=== PATIENT | female | born 1955 | race Caucasian/White ===

== ENCOUNTER 2017-12-25 18:57 | Emergency (ER) | payer BC, SELFPAY ==
[2017-12-25 18:59] VITALS: BP 155/102; PULSE 89; RESP 16; TEMP 36.2; O2SAT 98; BMI 21.7
--- NOTE | 2017-12-25 19:21 | EKG12_ITS ---
Test Reason : CP Blood Pressure : / mmHG Vent. Rate : 078 BPM Atrial Rate : 078 BPM P-R Int : 154 ms QRS Dur : 088 ms QT Int : 412 ms P-R-T Axes : 080 054 066 degrees QTc Int : 469 ms Normal sinus rhythm Nonspecific ST and T wave abnormality Abnormal ECG Confirmed by LYDIA ESPITIA, RAY ([id number]), script editor MOE GILMORE ([id number] on 12/26/2017 3:23:34 PM Referred By: KADIE Confirmed By:RAY FREEMAN MD
--- NOTE | 2017-12-25 19:21 | CT_ITS ---
STUDY: CT ABDOMEN AND PELVIS WITH CONTRAST REASON FOR EXAM: Female, 62 years old. Bloating. Blood in stool. Abdominal pain. RADIATION DOSAGE (If Supplied By Facility): CTDIvol = ( 13.80 ) mGy, DLP = ( 631.94 ) mGycm TECHNIQUE: Transaxial images were obtained from the dome of the diaphragm to the symphysis pubis with oral contrast. 100 ml of Isovue 300 contrast was administered. Sagittal and coronal images were reconstructed. Individualized dose optimization techniques were used for this CT. COMPARISON: None. FINDINGS: The visualized lung bases are unremarkable. There is elevation of the right hemidiaphragm. The visualized portions of the heart are within normal limits. The liver is normal in size, contour and enhancement. There is a 6 mm hypodensity in segment 4A of the liver thought to represent small cysts. There is no enhancing mass. Normal gallbladder and extrahepatic biliary system. Normal spleen. Normal pancreas. Normal bilateral adrenal glands. Normal right kidney. Normal left kidney. There is an extrarenal pelvis left kidney without hydronephrosis. Normal visualized bilateral ureters. Normal visualized stomach. Normal small intestine. Normal colon. The appendix is visualized and appears normal. There is diffuse atherosclerotic calcification of the abdominal aorta, without a demonstrated aneurysm. Normal inferior vena cava. Normal retroperitoneum. The urinary bladder is markedly distended. There is no wall thickening or mass. Normal uterus and adnexa. There is no pelvic lymphadenopathy. No free air or free fluid is seen within the peritoneal cavity. Normal abdominal wall. There is dextroscoliosis and degenerative changes of the lumbar spine. There is a right artificial hip. CT/Abdomen/Pelvis WITH Contrast IMPRESSION: 1. Small hepatic cyst. 2. Distended urinary bladder without evidence of mass or obstruction. 3. Degenerative changes and scoliosis of the lumbar spine. 4. Atherosclerotic changes of the abdominal aorta. 5. Right artificial hip. Electronically Signed: Catarino Alvarez DO at 21:30 EST Tel [phone], Service support ,
--- NOTE | 2017-12-25 19:22 | ED.VISSUMM ---
- ER Visit Summary Date of Service: 12/25/17 Chief Complaint: Decreased appetite, weight loss, transient chest pain History of Present Illness: The patient is a 62 F brought in with family evaluation of decreased appetite, weight loss. Been going on past few months. States nauseated. Reports had 2 episodes transient chest pain with pressure 1:11 PM the other at 4 PM. Has been resolved for 2 hours. Reports had a non-STEMI in October managed at [facility]. Elevated troponin, however no heart cath. Reports a image study was performed with minimal calcifications. She was treated medically with aspirin, Plavix, Lopressor. Was told to follow-up with her PCP. With her symptoms at that time, she did have an EGD, reported that this was normal findings. After follow with PCP, was referred to GI, saw Dr. Snyder 3 days ago. Barium swallow, also has an upcoming plan for colonoscopy in the next 2 weeks. Today from wiping noted blood. No hematuria. No pain with urination. Patient was told of her bowel habits change or worsening GI symptoms to go to the ED for evaluation. Physical Examination: General: Alert and oriented ?3, no acute distress HEENT: Normocephalic, atraumatic. Moist mucosa membranes Neck: supple, nontender. Cardiovascular: Regular rate and rhythm, no murmurs Respiratory: Normal breath sounds, symmetric, no distress Abdomen: Soft, nontender, nondistended Extremities: Nontender, no edema, pulses intact ?4 Neuro: no focal neurological deficits. Test Results: EKG: Sinus rate of 78, no ST changes. White count 8.3. Hemoglobin 15. Potassium 3.3. Creatinine 0.84. Lipase normal. LFTs normal. Troponin negative. Contrast abdominal CT noted small liver cyst with distended bladder. No masses. Emergency Department Course and Treatment: Patient nonsurgical abdomen. Patient reported decreased appetite weight loss. Is having outpatient workup. EGD out in [place] during her hospitalization in October reported negative. She has upcoming colonoscopy. There is been no imagings of the abdomen. Discussed further workup and rule out with testing. They agreed. Abdominal labs are stable. Contrast CT shows no masses. There is liver cyst, distended bladder. Patient is urinated prior to coming, she is able to urinate on my reevaluation. Was treated with Zofran and fluids felt much better. With her chest symptoms EKG was normal troponin negative. Patient will continue to follow-up as an outpatient her GI physician. All questions were answered. Signs and symptoms discussed return. Treatment Plan: [] Disposition: Discharge Impression: 1. Chest pain 2. Abdominal pain This note was generated with [employer] dictation software. It may contain incorrect words, spelling, and punctuation that were not noted in review of the chart prior to signing ED Disposition - Plan for ED Patient: Disposition: Home or Assisted Living Chief Complaint: Abd Pain Diagnosis: Chest pain, Abdominal pain Instructions: ED Chest Pain Atypical Unkn Cause, ED Abdominal Pain Unkn Cause Prescriptions: Ondansetron [Zofran Odt] 8 mg PO Q8H PRN PRN #10 tab PRN Reason: Nausea Referrals: Ron Jones MD [Primary Care Provider] - 3-5 Days Additional Instructions: Follow up with GI, Dr. Calix. Liver cyst on CT. No masses.
--- NOTE | 2017-12-25 19:24 | ED.RN ---
NO OLD EKGS IN MUSE
--- NOTE | 2017-12-25 19:25 | ED.DCSUM_ITS ---
- ER Visit Summary Date of Service: 12/25/17 Chief Complaint: Decreased appetite, weight loss, transient chest pain History of Present Illness: The patient is a 62 F brought in with family evaluation of decreased appetite, weight loss. Been going on past few months. States nauseated. Reports had 2 episodes transient chest pain with pressure 1:11 PM the other at 4 PM. Has been resolved for 2 hours. Reports had a non- STEMI in October managed at [facility]. Elevated troponin, however no heart cath. Reports a image study was performed with minimal calcifications. She was treated medically with aspirin, Plavix, Lopressor. Was told to follow- up with her PCP. With her symptoms at that time, she did have an EGD, reported that this was normal findings. After follow with PCP, was referred to GI, saw Dr. Snyder 3 days ago. Barium swallow, also has an upcoming plan for colonoscopy in the next 2 weeks. Today from wiping noted blood. No hematuria. No pain with urination. Patient was told of her bowel habits change or worsening GI symptoms to go to the ED for evaluation. Physical Examination: General: Alert and oriented ?3, no acute distress HEENT: Normocephalic, atraumatic. Moist mucosa membranes Neck: supple, nontender. Cardiovascular: Regular rate and rhythm, no murmurs Respiratory: Normal breath sounds, symmetric, no distress Abdomen: Soft, nontender, nondistended Extremities: Nontender, no edema, pulses intact ?4 Neuro: no focal neurological deficits. Test Results: EKG: Sinus rate of 78, no ST changes. White count 8.3. Hemoglobin 15. Potassium 3.3. Creatinine 0.84. Lipase normal. LFTs normal. Troponin negative. Contrast abdominal CT noted small liver cyst with distended bladder. No masses. Emergency Department Course and Treatment: Patient nonsurgical abdomen. Patient reported decreased appetite weight loss. Is having outpatient workup. EGD out in [place] during her hospitalization in October reported negative. She has upcoming colonoscopy. There is been no imagings of the abdomen. Discussed further workup and rule out with testing. They agreed. Abdominal labs are stable. Contrast CT shows no masses. There is liver cyst, distended bladder. Patient is urinated prior to coming, she is able to urinate on my reevaluation. Was treated with Zofran and fluids felt much better. With her chest symptoms EKG was normal troponin negative. Patient will continue to follow-up as an outpatient her GI physician. All questions were answered. Signs and symptoms discussed return. Treatment Plan: [] Disposition: Discharge Impression: 1. Chest pain 2. Abdominal pain This note was generated with [employer] dictation software. It may contain incorrect words, spelling, and punctuation that were not noted in review of the chart prior to signing ED Disposition - Plan for ED Patient: Disposition: Home or Assisted Living Chief Complaint: Abd Pain Diagnosis: Chest pain, Abdominal pain Instructions: ED Chest Pain Atypical Unkn Cause, ED Abdominal Pain Unkn Cause Prescriptions: Ondansetron [Zofran Odt] 8 mg PO Q8H PRN PRN #10 tab PRN Reason: Nausea Referrals: Ron Jones MD [Primary Care Provider] - 3-5 Days Additional Instructions: Follow up with GI, Dr. Calix. Liver cyst on CT. No masses.
[2017-12-25 19:45] LABS: Absolute Lymphocyte Count 3.15 X10^3/ul (0.83-4.51); Absolute Neutrophil Count 4.3 X10^3/uL (2.0-7.7); Basophil# 0.02 X10^3/uL; Basophil% 0.2 % (0-1); Eosinophil# 0.04 X10^3/uL; Eosinophils% 0.5 % (0-5); Hematocrit 44.4 % (37-47); Lymphocyte # 3.15 X10^3/ul (4.0); Mean Corp Hgb Conc 33.8 g/gl (32-36); Mean Corpuscular Hgb 32.6 pg (27.0-32.0); Mean Corpuscular Volume 96.5 fL (81-99); Mean Platelet Vol. 10.7 fl (6.2-12.0); Monocyte# 0.74 X10^3/uL; Monocyte% 8.9 % (0-10); Neutrophil # 4.34 X10^3/uL (2.7-7.7); Neutrophil % 52.3 % (47-70); Platelet Count 258 K/mm3 (150-450); RBC Distribution Width CV 13.4 % (11.6-14.6); RBC Distribution Width SD 47.3 fl (35.1-43.9); White Blood Count 8.3 K/mm3 (4.4-11.0)
[2017-12-25 19:50] LABS: ALB/GLOB Ratio 0.9 RATIO (0.9-2.4); AST(SGOT) 16 U/L (15-37); Alanine Aminotransfer ALT/SGPT 38 U/L (13-56); Albumin, Serum 4.2 g/dL (3.2-5.0); Alkaline Phosphatase 81 U/L (45-117); Anion Gap 10 (5-15); BUN 8 mg/dL (7-18); BUN/Creat Ratio 9.6 RATIO (10-20); Calcium,Total 9.2 mg/dL (8.5-10.1); Chloride 105 mmol/L (98-107); Creatinine, Serum 0.84 mg/dL (0.55-1.02); EST Glomerular Filtration Rate 74 mL/min (>60); Est Glom Filt Rate - Afr Amer 89 mL/min (>60); Estimated Creatinine Clearance 75.08 ml/min; Globulin 4.6 g/dL (2.2-4.2); Glucose 91 mg/dL (74-106); Lipase 109 U/L (73-393); Potassium 3.3 mmol/L (3.5-5.1); Protein, Total 8.8 g/dL (6.4-8.2); Sodium Level 142 mmol/L (136-145)
[2017-12-25 20:00] LABS: POSITIVE COUNT NO; POSITIVE DIFFERENTIAL NO; POSITIVE MORPHOLOGY NO
[2017-12-25 20:06] LABS: International Normalized Ratio 1.1; Partial Thromboplast Time 31.2 Seconds (24.1-36.2)
[2017-12-25] MEDS: Ondansetron 4 MG/2 ML Vial IV (20:08)
[2017-12-25] MEDS: 0.9% Normal Saline 1,000 ML 125 ML IV (20:14)
[2017-12-25 22:22] VITALS: BP 101/71; RESP 16; O2SAT 96
== END 2017-12-25 22:25 | disposition home or self-care (01) ==
PROVIDERS: Emergency Provider Emergency Medicine; Family Provider Family Medicine; PCP Family Medicine
DX: R07.89 Other chest pain (principal); R10.9 Unspecified abdominal pain; K76.89 Other specified diseases of liver; N32.89 Other specified disorders of bladder; R63.4 Abnormal weight loss; R11.0 Nausea; I25.10 Atherosclerotic heart disease of native coronary artery without angina pectoris; I25.2 Old myocardial infarction
CPT/HCPCS: 36415; 74177; 80053; 82274; 83690; 84484; 85025; 85610; 85730; 93005; 96361; 96374; 99283; J7030; Q9967; A4216; J2405

== ENCOUNTER 2018-01-02 11:28 | Observation (INO) | payer BC, SELFPAY ==
[2018-01-02] VITALS (9 sets, daily range): BP systolic 115–156; BP diastolic 67–101; PULSE 58–75; RESP 16–19; TEMP 35.6–36.6; O2SAT 95–98; BMI 21.1; BMI 20.8
--- NOTE | 2018-01-02 11:58 | RAD_ITS ---
STUDY: X-RAY CHEST REASON FOR EXAM: Female, 62 years old. Chest pain. Nausea. TECHNIQUE: Single AP portable view of the chest. COMPARISON: None. FINDINGS: EKG electrodes are seen. Hyperinflation. Scattered calcified granulomas. Mild biapical scarring. Normal size heart. Normal mediastinum and [place]. Normal visualized pulmonary arteries. There is atherosclerotic tortuosity of the aortic arch and descending thoracic aorta. Normal visualized thoracic spine. Normal visualized ribs, clavicles, and shoulders. There is no demonstrated abnormality of the visualized soft tissue structures of the upper abdomen. RAD/Chest 1 View (Portable) IMPRESSION: Hyperinflation. The lungs are clear. Electronically Signed: Sha Gomez MD at 12:48 EST Tel [phone], Service support ,
--- NOTE | 2018-01-02 11:59 | EKG12_ITS ---
Test Reason : CP Blood Pressure : / mmHG Vent. Rate : 067 BPM Atrial Rate : 067 BPM P-R Int : 150 ms QRS Dur : 090 ms QT Int : 424 ms P-R-T Axes : 074 070 076 degrees QTc Int : 448 ms Normal sinus rhythm Nonspecific ST abnormality Abnormal ECG Confirmed by JUAN JOSE ESPITIA, KLE ([id number]), design editor MOE GILMORE ([id number]) on 01/05/2018 1:19:09 PM Referred By: Confirmed By:KEL INGRAM MD
--- NOTE | 2018-01-02 12:01 | ED.VISSUMM ---
- ER Visit Summary Date of Service: 01/02/18 Chief Complaint: Abdominal pain History of Present Illness: The patient is a 62 F presents for continued lower abdominal pain for the past month. Patient was seen by myself a week ago with workup. She had a pending outpatient colonoscopy for which family reports was canceled today. She went through the bowel prep yesterday. Initially saw Dr. Claudio HO with upper endoscopy while at [place] ED when she went through an NSTEMI. There was not intervention and only CT study for calcification done. Patient was placed on aspirin, metoprolol, and a statin. ED a week ago contrast study was performed to rule out any masses which were negative. There is noted liver cysts. She was referred around from Dr. Calix for another GI for the colonoscopy. Family states had a pending colonoscopy today with Dr. Moreno. Reports was waiting for cardiac clearance paperwork which was not obtain therefore colonoscopy canceled today. Family states they received papers for which she has been cleared. In addition patient reports some chest tightness a.m. this morning. Nausea symptoms not improved with Zofran. No vomiting, states now clear loose stools due to bowel prep. Same abdominal pain for the past month. Physical Examination: General: Alert and oriented ?3, no acute distress HEENT: Normocephalic, atraumatic. Moist mucosa membranes Neck: supple, nontender. Cardiovascular: Regular rate and rhythm, no murmurs Respiratory: Normal breath sounds, symmetric, no distress Abdomen: Soft, mild suprapubic tenderness without guarding or rebound, nondistended Extremities: Nontender, no edema, pulses intact ?4 Neuro: no focal neurological deficits. Test Results: EKG: Sinus rate of 67, no ST changes, T wave inversion in aVL. Troponin negative. Chest x-ray negative. White count 6.6, hemoglobin 13.7. Creatinine 0.4. Lipase 110. Liver enzymes normal. Coags normal. Emergency Department Course and Treatment: Patient presents with recurrent chest pain and her continued abdominal pain cardiac workup negative. Patient did take. Total of 3 baby aspirins prior to arrival. With her heart history, cardiac workup obtained negative at this time reevaluation symptoms are improved. I did check abdominal labs which were normal. CT scan from a week ago did confirm left liver cysts. No other acute findings. I spoke with GI Dr. Moreno discussed patient for which she is aware of however has not met. He is concerned of patient's diagnosis of NSTEMI at outside hospital with no follow-up stress test or heart cath being performed. Patient has not followed up with cardiology since her hospitalization. States heart needs to be cleared by cardiology prior to any procedures by himself. He states he would plan on doing an upper and lower endoscopy for further management. He states the EGD reported from [place] did not have biopsies performed. With patient's recurrent chest pains with no cardiology follow-up do feel she would benefit from hospitalization for evaluation. Spoke with hospitalist, Dr. Plata who admit to PCU. Treatment Plan: [] Disposition: Admission Impression: 1. Acute chest pain 2. Abdominal pain This note was generated with [employer] dictation software. It may contain incorrect words, spelling, and punctuation that were not noted in review of the chart prior to signing ED Disposition - Plan for ED Patient: Disposition: Acute Care Hospital [facility] Chief Complaint: Abd Pain Diagnosis: Acute chest pain, Abdominal pain Referrals: Ron Jones MD [Primary Care Provider] -
--- NOTE | 2018-01-02 12:07 | ED.DCSUM_ITS ---
- ER Visit Summary Date of Service: 01/02/18 Chief Complaint: Abdominal pain History of Present Illness: The patient is a 62 F presents for continued lower abdominal pain for the past month. Patient was seen by myself a week ago with workup. She had a pending outpatient colonoscopy for which family reports was canceled today. She went through the bowel prep yesterday. Initially saw Dr. Claudio HO with upper endoscopy while at [place] ED when she went through an NSTEMI. There was not intervention and only CT study for calcification done. Patient was placed on aspirin, metoprolol, and a statin. ED a week ago contrast study was performed to rule out any masses which were negative. There is noted liver cysts. She was referred around from Dr. Calix for another GI for the colonoscopy. Family states had a pending colonoscopy today with Dr. Moreno. Reports was waiting for cardiac clearance paperwork which was not obtain therefore colonoscopy canceled today. Family states they received papers for which she has been cleared. In addition patient reports some chest tightness a.m. this morning. Nausea symptoms not improved with Zofran. No vomiting, states now clear loose stools due to bowel prep. Same abdominal pain for the past month. Physical Examination: General: Alert and oriented ?3, no acute distress HEENT: Normocephalic, atraumatic. Moist mucosa membranes Neck: supple, nontender. Cardiovascular: Regular rate and rhythm, no murmurs Respiratory: Normal breath sounds, symmetric, no distress Abdomen: Soft, mild suprapubic tenderness without guarding or rebound, nondistended Extremities: Nontender, no edema, pulses intact ?4 Neuro: no focal neurological deficits. Test Results: EKG: Sinus rate of 67, no ST changes, T wave inversion in aVL. Troponin negative. Chest x-ray negative. White count 6.6, hemoglobin 13.7. Creatinine 0.4. Lipase 110. Liver enzymes normal. Coags normal. Emergency Department Course and Treatment: Patient presents with recurrent chest pain and her continued abdominal pain cardiac workup negative. Patient did take. Total of 3 baby aspirins prior to arrival. With her heart history, cardiac workup obtained negative at this time reevaluation symptoms are improved. I did check abdominal labs which were normal. CT scan from a week ago did confirm left liver cysts. No other acute findings. I spoke with GI Dr. Moreno discussed patient for which she is aware of however has not met. He is concerned of patient's diagnosis of NSTEMI at outside hospital with no follow-up stress test or heart cath being performed. Patient has not followed up with cardiology since her hospitalization. States heart needs to be cleared by cardiology prior to any procedures by himself. He states he would plan on doing an upper and lower endoscopy for further management. He states the EGD reported from [place] did not have biopsies performed. With patient's recurrent chest pains with no cardiology follow-up do feel she would benefit from hospitalizatio n for evaluation. Spoke with hospitalist, Dr. Plata who admit to PCU. Treatment Plan: [] Disposition: Admission Impression: 1. Acute chest pain 2. Abdominal pain This note was generated with [employer] dictation software. It may contain incorrect words, spelling, and punctuation that were not noted in review of the chart prior to signing ED Disposition - Plan for ED Patient: Disposition: Acute Care Hospital [facility] Chief Complaint: Abd Pain Diagnosis: Acute chest pain, Abdominal pain Referrals: Ron Jones MD [Primary Care Provider] -
[2018-01-02] MEDS: 0.9% Normal Saline 1,000 ML 150 ML IV (12:11)
[2018-01-02] MEDS: proMETHazine 25 MG/ML Syringe 6.25 MG IV (12:11)
[2018-01-02 12:16] LABS: Absolute Lymphocyte Count 1.49 X10^3/ul (0.83-4.51); Absolute Neutrophil Count 4.8 X10^3/uL (2.0-7.7); Basophil# 0.02 X10^3/uL; Basophil% 0.3 % (0-1); Eosinophil# 0.02 X10^3/uL; Eosinophils% 0.3 % (0-5); Hematocrit 39.6 % (37-47); Hemoglobin 13.7 g/dl (12.0-15.0); Lymphocyte # 1.49 X10^3/ul (4.0); Lymphocyte % 22.5 % (19-41); Mean Corp Hgb Conc 34.6 g/gl (32-36); Mean Corpuscular Volume 95.4 fL (81-99); Mean Platelet Vol. 10.5 fl (6.2-12.0); Monocyte# 0.32 X10^3/uL; Monocyte% 4.8 % (0-10); Neutrophil # 4.76 X10^3/uL (2.7-7.7); Neutrophil % 71.9 % (47-70); POSITIVE COUNT NO; POSITIVE DIFFERENTIAL NO; POSITIVE MORPHOLOGY NO; Platelet Count 262 K/mm3 (150-450); RBC Distribution Width CV 12.5 % (11.6-14.6); RBC Distribution Width SD 42.7 fl (35.1-43.9); Red Blood Count 4.15 M/mm3 (4.2-5.4); White Blood Count 6.6 K/mm3 (4.4-11.0)
[2018-01-02 12:19] LABS: International Normalized Ratio 1.1; Prothrombin Time (Protime)PT. 13.7 SECONDS (11.7-14.9)
[2018-01-02 12:20] LABS: Partial Thromboplast Time 33.2 Seconds (24.1-36.2)
[2018-01-02 12:23] LABS: ALB/GLOB Ratio 0.9 RATIO (0.9-2.4); AST(SGOT) 22 U/L (15-37); Alanine Aminotransfer ALT/SGPT 35 U/L (13-56); Albumin, Serum 3.6 g/dL (3.2-5.0); Alkaline Phosphatase 75 U/L (45-117); Anion Gap 9 (5-15); BUN 5 mg/dL (7-18); BUN/Creat Ratio 5.9 RATIO (10-20); Calcium,Total 8.6 mg/dL (8.5-10.1); Chloride 98 mmol/L (98-107); Creatinine, Serum 0.84 mg/dL (0.55-1.02); EST Glomerular Filtration Rate 73 mL/min (>60); Est Glom Filt Rate - Afr Amer 88 mL/min (>60); Estimated Creatinine Clearance 73.09 ml/min; Globulin 3.8 g/dL (2.2-4.2); Glucose 154 mg/dL (74-106); Lipase 110 U/L (73-393); Potassium 3.5 mmol/L (3.5-5.1); Protein, Total 7.4 g/dL (6.4-8.2); Sodium Level 133 mmol/L (136-145)
--- NOTE | 2018-01-02 13:22 | NURSING ---
113 CP, ABD PAIN, OBS ASHELFAH
--- NOTE | 2018-01-02 13:40 | PCM.HP.STD ---
Problem List (1) Hypothyroidism Status: Chronic (2) Hyperlipidemia Status: Chronic (3) Hypertension Status: Chronic (4) Acute chest pain Status: Acute (5) Abdominal pain Status: Acute History of Present Illness Date of Admission: 01/02/18 Chief Complaint: Chest pain, abdominal pain. The patient is a 62 year old F with past medical history as mentioned above presented to the emergency room because of chest pain and abdominal pain. The patient was not able to provide detailed consistent history about his symptoms. She stated that her main presenting complaint today was her chest pain and less importantly the abdominal pain. This morning, she was sitting on her couch, started having abdominal pain, retrosternal and epigastric in location, nonexertional, pressure-like pain, 8 out of 10 in severity, associated with nausea and sweating and without aggravating or relieving factors. She denied shortness of breath, palpitation, syncope or presyncope. According to the patient and her [id number], patient had non-STEMI back on November 24, 2017 for which she was admitted at [facility], underwent cardiac CT scan and she was informed that she had coronary calcifications and there was no indication for interventions. She was discharged on aspirin and statins as well as beta blockers. Her other complaint is abdominal pain which has been going on for a few weeks, around 3-4 weeks, it is mainly lower abdominal pain, more on the right side, gassy pain, 7-8 out of 10 severity, intermittent, extends up to the epigastric region, associated with intermittent abdominal distention mainly on the right side it resembles gas bubble and associated with loose stool. She mentioned that she had hip replacement in July, and since then, she has been having loose stool. Couple of days ago, she had streaks of blood in the stool, not large amount. She denied fever or chills. She is supposed to go for colonoscopy as outpatient to be but that was canceled because she needed to be cleared by cardiology to go for the procedure although her duttinng-[id number] mentioned that her associate consulting engineer cleared him to go for the procedure but this clears was not available at Dr. Moreno's office. In the emergency department, her blood pressure was slightly elevated, other vital signs were stable. His routine blood work was remarkable for sodium of 133, otherwise normal. LFTs revealed total bilirubin of 1.5, otherwise normal. Liver transaminases and alkaline phosphatase were normal. Troponin is negative. Lipase was normal. EKG revealed normal sinus rhythm without evidence of acute ischemic changes or cardiac arrhythmias. Chest x-ray showed no acute findings. She had CT scan abdomen and pelvis without contrast on December 25, 2017 that showed no acute intra-abdominal pathology, revealed small hepatic cysts. She is being admitted for chest pain with recent history of non-STEMI as well as abdominal pain for evaluation. Past Medical History Past Medical History (Chronic Problems): Chronic Problems Hypothyroidism (Chronic) Hyperlipidemia (Chronic) Hypertension (Chronic) Allergies No Known Allergies Allergy (Verified 12/25/17 18:58) Home Medications: Ambulatory Orders Medication Instructions Recorded Ondansetron [Zofran Odt] 8 mg PO Q8H PRN PRN #10 tab 12/25/17 Aspirin 81 mg PO DAILY 01/02/18 Atorvastatin Calcium [Lipitor] 20 mg PO QHS 01/02/18 Levothyroxine Sodium [Synthroid] 88 mcg PO DAILY 01/02/18 Metoprolol Tartrate [Lopressor 50 mg PO BID 01/02/18 (beta ruth)] Surgical History: total hip arthroplasty Psychiatric History: No pertinent psych hx 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 Denies: Chills, Fever, Weakness, Fatigue Eyes: Denies: Blurred vision, Double vision, Drainage, Redness HEENT: Denies: Difficulty Hearing, Ear Pain, Eye Pain, Nasal Congestion, Sore Throat Cardiovascular: Reports: Chest Pain, Chest Tightness. Denies: Heaviness, Light Headedness, Orthopnea, Paroxysmal Noc. Dyspnea, Syncope Respiratory: Reports: Shortness of Breath. Denies: Cough, Pleuritic Pain, Sputum production, Wheezing Gastrointestinal: Reports: Abdominal Pain, Diarrhea, Nausea, Vomiting. Denies: Constipation Genitourinary: Denies: Dysuria, Frequency, Hematuria Musculoskeletal: Denies: Arm Pain, Back Pain, Foot Pain Skin: Denies: Dryness, Rash Neurological: Denies: Balance problems, Double vision, Change in Speech, Slurred speech, Confusion, Difficulty swallowing, Focal weakness, Incoordination, Numbness Psychiatric: Denies: Anxiety, Depression Endocrine: Denies: Change in Body Habitus, Polydipsia VTE Information - Inpt Only VTE Present on Admission: No VTE Mechan Device Prophylaxis: None VTE Pharm Prophylaxis ordered?: Yes Patient Problems: Active and Suspected Problems Acute chest pain (Acute) Abdominal pain (Acute) - Physical Exam General: Alert, Oriented x3, Cooperative, No apparent distress HEENT: Atraumatic, PERRLA, EOMI, Normocephalic Oral: Moist Mucosa, No Gingival or Mucosal Lesions/ Ulcerations Neck: Supple, No JVD, Negative Carotid Bruits, Trachea Midline, Thyroid Normal Size and Texture Lungs: Clear to auscultation, Normal air movement, No rhonchi, No wheeze, No rales Cardiovascular: Regular rate, Regular Rhythm, Normal S1, Normal S2, PMI Normal Abdomen: Bowel Sounds Present, Soft, Non Tender, Non-Distended, No Hepato-splenomegaly Extremities: No clubbing, No cyanosis, No edema Skin: No rashes, No breakdown Lymphatic: No Cervical, Supraclavicular, or Inguinal Adenopathy Neurological: Cranial nerves II-XII grossly intact, Motor Exam 5/5 strength throughout Psych/Mental Status: Normal Affect, Appropriate, Alert and oriented to time, place, person, mood and affect Vital Signs Temp Pulse Resp BP Pulse Ox 96.1 F L 60 19 H 146/83 H 95 01/02/18 11:29 01/02/18 12:36 01/02/18 12:36 01/02/18 12:36 01/02/18 12:36 Oxygen Delivery Method Room Air Weight: 147 lb Body Mass Index (BMI) 21.1 Laboratory Tests Past 24 Hrs 01/02/18 01/02/18 01/02/18 12:00 12:00 12:00 WBC 6.6 RBC 4.15 L Hgb 13.7 Hct 39.6 MCV 95.4 MCH 33.0 H MCHC 34.6 RDW 12.5 RDW Differential 42.7 Plt Count 262 MPV 10.5 Immature Gran % (Auto) 0.200 Neut % (Auto) 71.9 H Lymph % (Auto) 22.5 [place] % (Auto) 4.8 Eos % (Auto) 0.3 Baso % (Auto) 0.3 Absolute Neuts (auto) 4.8 Absolute Lymphs (auto) 1.49 Total Counted Not Reportable PT 13.7 INR 1.1 APTT 33.2 Sodium 133 L Potassium 3.5 Chloride 98 Carbon Dioxide 26.0 Anion Gap 9 BUN 5 L Creatinine 0.84 Estim Creat Clear Calc 73.09 Est GFR (MDRD) Af Amer 88 Est GFR (MDRD) Non-Af 73 BUN/Creatinine Ratio 5.9 L Glucose 154 H Calcium 8.6 Total Bilirubin 1.50 H AST 22 ALT 35 Alkaline Phosphatase 75 Troponin I Total Protein 7.4 Albumin 3.6 Globulin 3.8 Albumin/Globulin Ratio 0.9 Lipase 110 01/02/18 12:00 WBC RBC Hgb Hct MCV MCH MCHC RDW RDW Differential Plt Count MPV Immature Gran % (Auto) Neut % (Auto) Lymph % (Auto) [place] % (Auto) Eos % (Auto) Baso % (Auto) Absolute Neuts (auto) Absolute Lymphs (auto) Total Counted PT INR APTT Sodium Potassium Chloride Carbon Dioxide Anion Gap BUN Creatinine Estim Creat Clear Calc Est GFR (MDRD) Af Amer Est GFR (MDRD) Non-Af BUN/Creatinine Ratio Glucose Calcium Total Bilirubin AST ALT Alkaline Phosphatase Troponin I < 0.015 Total Protein Albumin Globulin Albumin/Globulin Ratio Lipase Clinical Impression(s) from Imaging Studies Chest X-Ray 01/02/18 11:58 IMPRESSION: Hyperinflation. The lungs are clear. Electronically Signed: Sha Gomez MD at 12:48 EST Tel [phone], Service support , Assessment/Plan All Active Problems Acute chest pain (Acute) Abdominal pain (Acute) This is a 62 years old female patient presented to the emergency room because of atypical chest pain as well as abdominal pain that has been going on for several weeks and she is being admitted for evaluation. #1 atypical chest pain/recent history of non-STEMI: EKG revealed no acute ischemic changes. Troponin is negative. According to the patient, she had non-STEMI back on November 24, [address] scan done and she was informed that she has coronary calcifications but there was no indication for interventions. His [id number] confirms that her cardiac enzymes were elevated. Risk factors are age, history of smoking, hypertension and hyperlipidemia. Chest x-ray showed no acute findings. Her vital signs are stable except slightly elevated blood pressure. Plan: Admit to PCU for observation, cardiac monitoring, serial cardiac enzymes, continue aspirin and statins as well as metoprolol, repeat CBC and BMP tomorrow morning, cardiology consult, obtain medical records from [facility]. #2 abdominal pain: This has been going on for several weeks. She is scheduled to go for colonoscopy as outpatient today but was canceled because of unavailability of the cardiology medical clearance for the procedure although [id number] mentioned that her associate consulting engineer. Her to go for colonoscopy. She had CT scan abdomen done on December 25, 2017 at this hospital and revealed no acute findings. According to the patient, she had upper EGD done at [facility] during her last admission in November, and she was informed that was normal. Plan: IV fluids, clear liquids, IV Protonix, IV antiemetics, general surgery consult for probable colonoscopy. #3 hypertension: Blood pressure slightly elevated, continue metoprolol, start IV hydralazine as needed. #4 hyperlipidemia: Continue statins. #5 hypothyroidism: Stable, continue levothyroxine. #6 DVT prophylaxis: Subcu Lovenox. This note was generated with [employer] dictation software. It may contain incorrect words, spelling, and punctuation that were not noted in checking the note before signing. Code Visit OBSV E&M: 63848 Initial observation care L3
--- NOTE | 2018-01-02 13:47 | HP.PCM_ITS ---
Problem List (1) Hypothyroidism Status: Chronic (2) Hyperlipidemia Status: Chronic (3) Hypertension Status: Chronic (4) Acute chest pain Status: Acute (5) Abdominal pain Status: Acute History of Present Illness Date of Admission: 01/02/18 Chief Complaint: Chest pain, abdominal pain. The patient is a 62 year old F with past medical history as mentioned above presented to the emergency room because of chest pain and abdominal pain. The patient was not able to provide detailed consistent history about his symptoms. She stated that her main presenting complaint today was her chest pain and less importantly the abdominal pain. This morning, she was sitting on her couch, started having abdominal pain, retrosternal and epigastric in location, nonexertional, pressure-like pain, 8 out of 10 in severity, associated with nausea and sweating and without aggravating or relieving factors. She denied shortness of breath, palpitation, syncope or presyncope. According to the patient and her [id number], patient had non-STEMI back on November 24, 2017 for which she was admitted at [facility], underwent cardiac CT scan and she was informed that she had coronary calcifications and there was no indication for interventions. She was discharged on aspirin and statins as well as beta blockers. Her other complaint is abdominal pain which has been going on for a few weeks, around 3-4 weeks, it is mainly lower abdominal pain, more on the right side, gassy pain, 7-8 out of 10 severity, intermittent, extends up to the epigastric region, associated with intermittent abdominal distention mainly on the right side it resembles gas bubble and associated with loose stool. She mentioned that she had hip replacement in July, and since then, she has been having loose stool. Couple of days ago, she had streaks of blood in the stool, not large amount. She denied fever or chills. She is supposed to go for colonoscopy as outpatient to be but that was canceled because she needed to be cleared by cardiology to go for the procedure although her [id number] mentioned that her refrigerating machine operator cleared him to go for the procedure but this clears was not available at Dr. Moreno's office. In the emergency department, her blood pressure was slightly elevated, other vital signs were stable. His routine blood work was remarkable for sodium of 133, otherwise normal. LFTs revealed total bilirubin of 1.5, otherwise normal. Liver transaminases and alkaline phosphatase were normal. Troponin is negative. Lipase was normal. EKG revealed normal sinus rhythm without evidence of acute ischemic changes or cardiac arrhythmias. Chest x-ray showed no acute findings. She had CT scan abdomen and pelvis without contrast on December 25, 2017 that showed no acute intra-abdominal pathology, revealed small hepatic cysts. She is being admitted for chest pain with recent history of non-STEMI as well as abdominal pain for evaluation. Past Medical History Past Medical History (Chronic Problems): Chronic Problems Hypothyroidism (Chronic) Hyperlipidemia (Chronic) Hypertension (Chronic) Allergies No Known Allergies Allergy (Verified 12/25/17 18:58) Home Medications: Ambulatory Orders Medication Instructions Recorded Ondansetron [Zofran Odt] 8 mg PO Q8H PRN PRN #10 tab 12/25/17 Aspirin 81 mg PO DAILY 01/02/18 Atorvastatin Calcium [Lipitor] 20 mg PO QHS 01/02/18 Levothyroxine Sodium [Synthroid] 88 mcg PO DAILY 01/02/18 Metoprolol Tartrate [Lopressor 50 mg PO BID 01/02/18 (beta ruth)] Surgical History: total hip arthroplasty Psychiatric History: No pertinent psych hx 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 Denies: Chills, Fever, Weakness, Fatigue Eyes: Denies: Blurred vision, Double vision, Drainage, Redness HEENT: Denies: Difficulty Hearing, Ear Pain, Eye Pain, Nasal Congestion, Sore Throat Cardiovascular: Reports: Chest Pain, Chest Tightness. Denies: Heaviness, Light Headedness, Orthopnea, Paroxysmal Noc. Dyspnea, Syncope Respiratory: Reports: Shortness of Breath. Denies: Cough, Pleuritic Pain, Sputum production, Wheezing Gastrointestinal: Reports: Abdominal Pain, Diarrhea, Nausea, Vomiting. Denies: Constipation Genitourinary: Denies: Dysuria, Frequency, Hematuria Musculoskeletal: Denies: Arm Pain, Back Pain, Foot Pain Skin: Denies: Dryness, Rash Neurological: Denies: Balance problems, Double vision, Change in Speech, Slurred speech, Confusion, Difficulty swallowing, Focal weakness, Incoordination, Numbness Psychiatric: Denies: Anxiety, Depression Endocrine: Denies: Change in Body Habitus, Polydipsia VTE Information - Inpt Only VTE Present on Admission: No VTE Mechan Device Prophylaxis: None VTE Pharm Prophylaxis ordered?: Yes Patient Problems: Active and Suspected Problems Acute chest pain (Acute) Abdominal pain (Acute) - Physical Exam General: Alert, Oriented x3, Cooperative, No apparent distress HEENT: Atraumatic, PERRLA, EOMI, Normocephalic Oral: Moist Mucosa, No Gingival or Mucosal Lesions/ Ulcerations Neck: Supple, No JVD, Negative Carotid Bruits, Trachea Midline, Thyroid Normal Size and Texture Lungs: Clear to auscultation, Normal air movement, No rhonchi, No wheeze, No rales Cardiovascular: Regular rate, Regular Rhythm, Normal S1, Normal S2, PMI Normal Abdomen: Bowel Sounds Present, Soft, Non Tender, Non-Distended, No Hepato- splenomegaly Extremities: No clubbing, No cyanosis, No edema Skin: No rashes, No breakdown Lymphatic: No Cervical, Supraclavicular, or Inguinal Adenopathy Neurological: Cranial nerves II-XII grossly intact, Motor Exam 5/5 strength throughout Psych/Mental Status: Normal Affect, Appropriate, Alert and oriented to time, place, person, mood and affect Vital Signs Temp Pulse Resp BP Pulse Ox 96.1 F L 60 19 H 146/83 H 95 01/02/18 11:29 01/02/18 12:36 01/02/18 12:36 01/02/18 12:36 01/02/18 12:36 Oxygen Delivery Method Room Air Weight: 147 lb Body Mass Index (BMI) 21.1 Laboratory Tests Past 24 Hrs 01/02/18 01/02/18 01/02/18 12:00 12:00 12:00 WBC 6.6 RBC 4.15 L Hgb 13.7 Hct 39.6 MCV 95.4 MCH 33.0 H MCHC 34.6 RDW 12.5 RDW Differential 42.7 Plt Count 262 MPV 10.5 Immature Gran % (Auto) 0.200 Neut % (Auto) 71.9 H Lymph % (Auto) 22.5 [place] % (Auto) 4.8 Eos % (Auto) 0.3 Baso % (Auto) 0.3 Absolute Neuts (auto) 4.8 Absolute Lymphs (auto) 1.49 Total Counted Not Reportable PT 13.7 INR 1.1 APTT 33.2 Sodium 133 L Potassium 3.5 Chloride 98 Carbon Dioxide 26.0 Anion Gap 9 BUN 5 L Creatinine 0.84 Estim Creat Clear Calc 73.09 Est GFR (MDRD) Af Amer 88 Est GFR (MDRD) Non-Af 73 BUN/Creatinine Ratio 5.9 L Glucose 154 H Calcium 8.6 Total Bilirubin 1.50 H AST 22 ALT 35 Alkaline Phosphatase 75 Troponin I Total Protein 7.4 Albumin 3.6 Globulin 3.8 Albumin/Globulin Ratio 0.9 Lipase 110 01/02/18 12:00 WBC RBC Hgb Hct MCV MCH MCHC RDW RDW Differential Plt Count MPV Immature Gran % (Auto) Neut % (Auto) Lymph % (Auto) [place] % (Auto) Eos % (Auto) Baso % (Auto) Absolute Neuts (auto) Absolute Lymphs (auto) Total Counted PT INR APTT Sodium Potassium Chloride Carbon Dioxide Anion Gap BUN Creatinine Estim Creat Clear Calc Est GFR (MDRD) Af Amer Est GFR (MDRD) Non-Af BUN/Creatinine Ratio Glucose Calcium Total Bilirubin AST ALT Alkaline Phosphatase Troponin I < 0.015 Total Protein Albumin Globulin Albumin/Globulin Ratio Lipase Clinical Impression(s) from Imaging Studies Chest X-Ray 01/02/18 11:58 IMPRESSION: Hyperinflation. The lungs are clear. Electronically Signed: Sha Gomez MD at 12:48 EST Tel [phone], Service support , Assessment/Plan All Active Problems Acute chest pain (Acute) Abdominal pain (Acute) This is a 62 years old female patient presented to the emergency room because of atypical chest pain as well as abdominal pain that has been going on for several weeks and she is being admitted for evaluation. #1 atypical chest pain/recent history of non-STEMI: EKG revealed no acute ischemic changes. Troponin is negative. According to the patient, she had non- STEMI back on November 24, [address] scan done and she was informed that she has coronary calcifications but there was no indication for interventions. His [id number] confirms that her cardiac enzymes were elevated. Risk factors are age, history of smoking, hypertension and hyperlipidemia. Chest x-ray showed no acute findings. Her vital signs are stable except slightly elevated blood pressure. Plan: Admit to PCU for observation, cardiac monitoring, serial cardiac enzymes, continue aspirin and statins as well as metoprolol, repeat CBC and BMP tomorrow morning, cardiology consult, obtain medical records from [facility]. #2 abdominal pain: This has been going on for several weeks. She is scheduled to go for colonoscopy as outpatient today but was canceled because of unavailability of the cardiology medical clearance for the procedure although [id number] mentioned that her refrigerating machine operator. Her to go for colonoscopy. She had CT scan abdomen done on December 25, 2017 at this hospital and revealed no acute findings. According to the patient, she had upper EGD done at [facility] during her last admission in November, and she was informed that was normal. Plan: IV fluids, clear liquids, IV Protonix, IV antiemetics, general surgery consult for probable colonoscopy. #3 hypertension: Blood pressure slightly elevated, continue metoprolol, start IV hydralazine as needed. #4 hyperlipidemia: Continue statins. #5 hypothyroidism: Stable, continue levothyroxine. #6 DVT prophylaxis: Subcu Lovenox. This note was generated with [employer] dictation software. It may contain incorrect words, spelling, and punctuation that were not noted in checking the note before signing. Code Visit OBSV E&M: 52391 Initial observation care L3
--- NOTE | 2018-01-02 14:00 | EKG12_ITS ---
Test Reason : CP REPEAT Blood Pressure : / mmHG Vent. Rate : 059 BPM Atrial Rate : 059 BPM P-R Int : 142 ms QRS Dur : 086 ms QT Int : 464 ms P-R-T Axes : 076 071 076 degrees QTc Int : 459 ms Sinus bradycardia Nonspecific ST abnormality Abnormal ECG When compared with ECG of 25-DEC-2017 19:07, ST less depressed in Anterior leads Confirmed by JUAN JOSE ESPITIA, KEL ([id number]), content editor MOE GILMORE ([id number] on 01/05/2018 1:49:42 PM Referred By: SHERI Confirmed By:KEL INGRAM MD
[2018-01-02] MEDS: 0.9% Normal Saline 1,000 ML 75 ML IV (14:28)
--- NOTE | 2018-01-02 19:57 | CON.PCM_ITS ---
Reason for Consult Date of Consultation: 01/02/18 History of Present Illness: The patient is a 62 year old F with significant GI complaints of the last 3 months complicated by a recent diagnosis of a non-ST segment elevation myocardial infarction. The patient's GI complaints - change in bowel habits - have been occurring for the past year, after undergoing right hip replacement, since that time the patient has noticed relatively loose stools with looser stools in the morning and urgency. Prior to hip replacement the patient routinely had constipation issues. She denied blood in her stools. She denied rice water stools. She notes that after a few liquid bowel movements in the morning she would generally not have bowel movements for the rest of the day. She noted some degree of Cramping and a feeling of significant gas and bloating since that time. She does not recall she had any stool cultures obtained once this started- specifically no C. difficile or enteric pathogens. This is been persistent for the past 3 months. For the past 3 months, the patient has noted sense of dysphagia and at times chest pain. The patient a sensation of food sticking in her from her upper throat to her mid chest area. This will occur sporadically. It can occur with either liquid or solid food. She has a feeling of food stuck within her throat or the sensation there is a gas bubble in her upper epigastrium lower chest. She states that she drinks a carbonated beverage it will either help the food down or make that sensation go away. She notes occasionally vomiting regurgitating his food. She notes no coffee grounds or blood in her vomitus. The patient does not necessarily have significant chest pain or pressure during these episodes.she states she is also approximately 15 pounds in the intervening 3 months. Additionally, the patient is noted occasional chest discomfort which she feels as a tightness or squeezing. This is not necessarily related to times eating food. The patient presented to [facility] on November 24, 2017 in the evening after noting a severe chest squeezing pressure feeling reading through to her back which occurred while she was at work lasting for several hours. the patient underwent a CT angiography chest CT scan which was negative for pulmonary embolism it did apparently notes some scarring changes consistent with chronic COPD. The patient was seen and admitted to the hospital initially with no ST segment changes and a negative troponin but then later elevated troponin levels. Given that finding, the patient was given a diagnosis of non- ST segment elevated myocardial infarction. On November 27, she underwent a CT a heart coronary artery study. This was listed as a total calcium score of 32 and no evidence of obstructive coronary disease or plaque by coronary CT angiogram. No additional cardiac testing was performed to the patient's knowledge. She states she was told by the production tester that should follow up with radiology in 3-4 years. while she was in the hospital she also underwent upper endoscopy given her complaints of dysphasia. Report for the EGD was unremarkable. No biopsies were obtained. She also understands she underwent an upper GI which demonstrated no abnormalities. She was discharged from the hospital on November 29, 2017.she was discharged on aspirin, metoprolol, and a statin. She has not taken any proton pump inhibitors. She presented to [facility] emergency department on November 24 and today December 02 again with complaints of overall failure to thrive, weight loss and recurring chest pressure/discomfort. The patient underwent a CT scan of the abdomen and pelvis on November 24. This demonstrated no discrete abnormalities. the patient has a prior history of tobacco use. She quit approximately 6 or more years ago. She had been very draping with nicotine products, but stopped those products proximally 4 years ago. She carries a diagnosis of asthma, hypertension, and hyperlipidemia. Past Medical History Past Medical History (Chronic Problems): Chronic Problems Hypothyroidism (Chronic) Hyperlipidemia (Chronic) Hypertension (Chronic) Allergies No Known Allergies Allergy (Verified 12/25/17 18:58) Home Medications: Ambulatory Orders Medication Instructions Recorded Ondansetron [Zofran Odt] 8 mg PO Q8H PRN PRN #10 tab 12/25/17 Aspirin 81 mg PO DAILY 01/02/18 Atorvastatin Calcium [Lipitor] 20 mg PO QHS 01/02/18 Levothyroxine Sodium [Synthroid] 88 mcg PO DAILY 01/02/18 Metoprolol Tartrate [Lopressor 50 mg PO BID 01/02/18 (beta ruth)] Surgical History: total hip arthroplasty Psychiatric History: No pertinent psych hx 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 Denies: Chills, Fever HEENT: Denies: Head Aches, Sinus Congestion, Sinus Drainage Cardiovascular: Reports: Chest Pain, Chest Pressure. Denies: Palpitations Respiratory: Denies: Cough, Shortness of breath at rest, Sputum production Gastrointestinal: Reports: Abdominal Pain, Diarrhea, Hematochezia. Denies: Nausea, Vomiting Genitourinary: Denies: Dysuria Musculoskeletal: Denies: Joint Pain, Joint Tenderness Skin: Denies: Rash, Wounds Neurological: Denies: Numbness, Tingling, Focal weakness Psychiatric: Denies: Anxiety, Depression, Homicidal Ideations, Suicidal Ideations Hematologic/ Lymphatic: Denies: Easy Bruising, Easy Bleeding Patient Problems: Active and Suspected Problems Acute chest pain (Acute) Abdominal pain (Acute) - Physical Exam General: Alert, Oriented x3, Cooperative HEENT: Atraumatic, PERRLA, EOMI, Normocephalic Neck: Supple, No JVD, Negative Carotid Bruits Lungs: Clear to auscultation, Normal air movement Cardiovascular: Regular rate, No murmurs Abdomen: Bowel Sounds Present, Soft, Non Tender Extremities: No edema, Capillary Refill Less than 3 Seconds Skin: No rashes, No breakdown Musculoskeletal: No Tenderness to Palpation of Joints or Extremities Neurological: Cranial nerves II-XII grossly intact Psych/Mental Status: Normal Affect, Appropriate Vital Signs Temp Pulse Resp BP Pulse Ox 97.8 F 64 18 131/75 H 98 01/02/18 16:23 01/02/18 19:16 01/02/18 16:23 01/02/18 16:23 01/02/18 16:23 Oxygen Delivery Method Room Air Weight: 65.9 kg Body Mass Index (BMI) 20.8 Intake and Output for Last 24 Hours 12/31/17 01/01/18 01/02/18 23:59 23:59 23:59 Intake Total 734 / 734 Balance 734 / 734 Laboratory Tests Past 24 Hrs 01/02/18 01/02/18 01/02/18 12:00 12:00 12:00 WBC 6.6 RBC 4.15 L Hgb 13.7 Hct 39.6 MCV 95.4 MCH 33.0 H MCHC 34.6 RDW 12.5 RDW Differential 42.7 Plt Count 262 MPV 10.5 Immature Gran % (Auto) 0.200 Neut % (Auto) 71.9 H Lymph % (Auto) 22.5 [place] % (Auto) 4.8 Eos % (Auto) 0.3 Baso % (Auto) 0.3 Absolute Neuts (auto) 4.8 Absolute Lymphs (auto) 1.49 Total Counted Not Reportable PT 13.7 INR 1.1 APTT 33.2 Sodium 133 L Potassium 3.5 Chloride 98 Carbon Dioxide 26.0 Anion Gap 9 BUN 5 L Creatinine 0.84 Estim Creat Clear Calc 73.09 Est GFR (MDRD) Af Amer 88 Est GFR (MDRD) Non-Af 73 BUN/Creatinine Ratio 5.9 L Glucose 154 H Calcium 8.6 Total Bilirubin 1.50 H Direct Bilirubin AST 22 ALT 35 Alkaline Phosphatase 75 Troponin I Total Protein 7.4 Albumin 3.6 Globulin 3.8 Albumin/Globulin Ratio 0.9 Lipase 110 01/02/18 01/02/18 01/02/18 12:00 15:00 15:00 WBC RBC Hgb Hct MCV MCH MCHC RDW RDW Differential Plt Count MPV Immature Gran % (Auto) Neut % (Auto) Lymph % (Auto) [place] % (Auto) Eos % (Auto) Baso % (Auto) Absolute Neuts (auto) Absolute Lymphs (auto) Total Counted PT INR APTT Sodium Potassium Chloride Carbon Dioxide Anion Gap BUN Creatinine Estim Creat Clear Calc Est GFR (MDRD) Af Amer Est GFR (MDRD) Non-Af BUN/Creatinine Ratio Glucose Calcium Total Bilirubin Direct Bilirubin 0.40 H AST ALT Alkaline Phosphatase Troponin I < 0.015 < 0.015 Total Protein Albumin Globulin Albumin/Globulin Ratio Lipase 01/02/18 17:34 WBC RBC Hgb Hct MCV MCH MCHC RDW RDW Differential Plt Count MPV Immature Gran % (Auto) Neut % (Auto) Lymph % (Auto) [place] % (Auto) Eos % (Auto) Baso % (Auto) Absolute Neuts (auto) Absolute Lymphs (auto) Total Counted PT INR APTT Sodium Potassium Chloride Carbon Dioxide Anion Gap BUN Creatinine Estim Creat Clear Calc Est GFR (MDRD) Af Amer Est GFR (MDRD) Non-Af BUN/Creatinine Ratio Glucose Calcium Total Bilirubin Direct Bilirubin AST ALT Alkaline Phosphatase Troponin I < 0.015 Total Protein Albumin Globulin Albumin/Globulin Ratio Lipase Assessment/Plan All Active Problems Acute chest pain (Acute) Abdominal pain (Acute) diagnosis of a non-ST segment myocardial infarction one month previously, chest pain and pressure, dysphagia, change in bowel habits with diarrhea, weight loss, failure to thrive The fact that the patient supposedly had an unremarkable upper endoscopy positive troponins but this was felt not to be a significant cardiac event has me somewhat confused. I understand the logic of no cardiac catheterization given her chest CT scan to better coronary arteries, but given the fact that her upper endoscopy was unremarkable I would be most comfortable with the patient undergoing additional cardiac evaluation in the form of stress test prior to performing endoscopy. Given that upper endoscopy was performed and the patient's dysphagia but no biopsies were obtained, I would plan for repeat upper endoscopy with esophageal gastric and jejunal biopsies checking for microscopic abnormalities. If truly no significant abnormalities are found, this could be relatively silent gastric reflux which might respond to empiric proton pump inhibitor use, or this could be esophageal spasms which revealed best diagnosed via manometry or consideration of giving the patient a calcium channel ruth to see if this improved her symptomatology. Given her diagnosis of diarrhea for the past year which is a change in bowel habits I feel that both upper endoscopy with the above biopsies and lower endoscopy with random biopsies regardless of findings would be indicated. This will be planned for after the patient stress test provided that is unremarkable. The patient has been on clear liquids for 4 days but has not had a bowel prep formally. We will give 2 L of GoLYTELY.
[2018-01-02] MEDS: Electrolyte Solution/Peg's 4000 ML 2000 ML PO (20:02)
[2018-01-02] MEDS: Metoprolol Tartrate 50 MG Tablet PO (20:20)
[2018-01-02] MEDS: Atorvastatin Calcium 20 MG Tablet PO (20:20)
--- NOTE | 2018-01-02 20:24 | NURSING ---
Pt requesting to have meds given early.
[2018-01-02] MEDS: 0.9% NaCl Peripheral Flush Adult/Peds IV (22:22)
[2018-01-02] MEDS: Ondansetron 4 MG/2 ML Vial IV (22:22)
[2018-01-03] VITALS (12 sets, daily range): BP systolic 96–120; BP diastolic 61–79; PULSE 55–75; RESP 16–18; TEMP 36.5–36.8; O2SAT 94–99
--- NOTE | 2018-01-03 | EGD_PTH ---
PATIENT: YESSICA ALONZO LOC: U U#:[id number] AGE/SX: 62/F ROOM: [facility] RE01/02/[address]: Dr. James Rivas MD : 1955 BED: 1 DIS: 01/03/2018 SPEC #: [id number] RECD: 01/03/18 14:50 STATUS: BETHEL REQ #: [id number] NIMISHA: 01/03/18 00:[address]: Jacob Moreno DEPT: SURGICAL PATHOLOGY RECD BY: Prasanna Herrera ENTERED: 01/03/18 14:51 SP TYPE: EGD BIOPSY OTHR DR: MD Dr. Tyler Kilpatrick MD Dr. Mark Elderbrock, MD Dr. Richard Guttman, MD Tissues: A - Jejunum, NOS B - Gastric mucous membrane C - Gastric mucous membrane D - Esophageal mucous membrane E - Ileum, NOS F - COLON BIOPSY G - Rectum, NOS Procedures: Surgery Specimen Level IV Comments: @ Ordering doctor for SUIV edited from to @ by KIRSTIN at 01/05/18 0749 @ Submitting doctor edited from to @ by KIRSTIN at 01/05/18 0749 HEADER OPERATION: [place] [place] DIAGNOSIS: Change in bowel habits, epigastric symptoms, failure to thrive, chest pain and dysphagia TISSUE SUBMITTED: A - Jejunum biopsy, B - Antrum biopsy for H. pylori and path, C - GE junction biopsy, D - Mid esophagus biopsy, E - Terminal ileum biopsy, F - Random colon biopsies, G - Polypectomy of rectal sigmoid polyp MICROSCOPIC DIAGNOSIS A. Jejunum, biopsy: A fragment of small intestinal mucosa, no pathologic diagnosis. B. Antrum, biopsy: Mild gastritis. C. GE junction, biopsy: A fragment of squamous epithelium with congestion and minimal chronic inflammation. D. Mid esophagus, biopsy: A fragment of squamous epithelium with mild chronic inflammation. E. Terminal ileum, biopsy: A fragment of small intestinal mucosa, no pathologic diagnosis. F. Colon, random biopsy: Fragments of colonic mucosa, no pathologic diagnosis. G. Rectal sigmoid polyp, polypectomy: Tubular adenoma. A fragment of fecal material. SJ:cody 01/05/18 COMMENT B. The results of immunohistochemistry for Helicobacter pylori will be reported separately ([id number]). MICROSCOPIC DESCRIPTION Slides are reviewed. B. The specimen shows fragments of gastric mucosa with chronic inflammatory cell infiltrates in the lamina propria consisting of lymphocytes and plasma cells, consistent with mild chronic gastritis. GROSS DESCRIPTION A - Received in fixative is one container labeled with the patient's name and designated biopsy of jejunum. The specimen consists of one irregular fragment of light zayas soft tissue that measures 0.4 x 0.3 x 0.1 cm. The specimen is totally submitted in one cassette. B - Received in fixative is one container labeled with the patient's name and designated antrum biopsy for H. pylori and path. The specimen consists of one irregular fragment of light zayas soft tissue that measures 0.3 x 0.3 x 0.1 cm. The specimen is totally submitted in one cassette. C - Received in fixative is one container labeled with the patient's name and designated GE junction biopsy. The specimen consists of one irregular fragment of light zayas soft tissue that measures 0.4 x 0.3 x 0.1 cm. The specimen is totally submitted in one cassette. D - Received in fixative is one container labeled with the patient's name and designated mid esophagus biopsy. The specimen consists of one irregular fragment of light zayas soft tissue that measures 0.3 x 0.3 x 0.1 cm. The specimen is totally submitted in one cassette. E - Received in fixative is one container labeled with the patient's name and designated terminal ileum biopsy. The specimen consists of one irregular fragment of light zayas soft tissue that measures 0.4 x 0.4 x 0.1 cm. The specimen is totally submitted in one cassette. F - Received in fixative is one container labeled with the patient's name and designated random colon biopsy. The specimen consists of two irregular fragments of light zayas soft tissue that in aggregate measure 0.8 x 0.2 x 0.1 cm. The specimen is totally submitted in one cassette. G - Received in fixative is one container labeled with the patient's name and designated rectal sigmoid polyp. The specimen consists of two irregular fragments of light zayas soft tissue that in aggregate measure 0.4 x 0.2 x 0.1 cm. The specimen is totally submitted in one cassette. / IMER:cody 01/03/18 TC:1 CPT: 94556 x7
--- NOTE | 2018-01-03 | IMM_PTH ---
PATIENT: YESSICA ALONZO LOC: PCU U#:[id number] AGE/SX: 62/F ROOM: [facility] RE01/02/[address]: Dr. James Rivas MD : 1955 BED: 1 DIS: 01/03/2018 SPEC #: [id number] RECD: 01/05/18 09:05 STATUS: BETHEL REQ #: [id number] NIMISHA: 01/03/18 00:[address]: Jacob Moerno DEPT: IMMUNOHISTOCHEMISTRY RECD BY: Rea Fuller ENTERED: 01/05/18 09:06 SP TYPE: IMMUNO OTHR DR: MD Dr. Tyler Kilpatrick MD Dr. Mark Elderbrock, MD Tissues: B - Stomach, NOS Procedures: H Pylori (initial) Comments: @ Ordering doctor for H.PYLORI edited from to @ by KIRSTIN at 01/05/18905 @ Submitting doctor edited from to @ by KIRSTIN at 01/05/18905 PHYSICIAN & INSTITUTION [place] [id number] SPECIMEN INFORMATION: Tissue Source: B - Antrum biopsy Clinical Info: Change in bowel habits, epigastric symptoms Specimen Number: [id number] CPT code: 96208 METHODOLOGY: Deparaffinized sections of prefer/formalin-fixed tissue or PAP/DQ stained slides are incubated with monoclonal/polyclonal antibodies/oligonucleotide probes. Localization is made via biotin free immunoperoxidase method. Appropriate controls are performed and reacted as expected. Results on target cell population are indicated in the following table: RESULTS: ANTIBODY / CLONE RESULT Block B H Pylori (polyclonal) negative These tests were developed and their performance characteristics determined by Laboratory. They may not have been cleared or approved by the [place].S. Food and Drug Administration. The FDA has determined that such clearance or approval is not necessary. INTERPRETATION: B. Antrum, biopsy: Negative for Helicobacter pylori organisms. IMER:cody 01/05/18
[2018-01-03] MEDS: 0.9% Normal Saline 1,000 ML 75 ML IV (04:29)
[2018-01-03] MEDS: Metoprolol Tartrate 50 MG Tablet PO (05:50)
[2018-01-03] MEDS: Aspirin 81 MG TAB.CHEW PO (05:51)
[2018-01-03] MEDS: Levothyroxine 88 MCG Tablet PO (05:51)
--- NOTE | 2018-01-03 05:55 | EKG12_ITS ---
Test Reason : AM Blood Pressure : / mmHG Vent. Rate : 056 BPM Atrial Rate : 056 BPM P-R Int : 142 ms QRS Dur : 092 ms QT Int : 458 ms P-R-T Axes : 074 069 077 degrees QTc Int : 441 ms Sinus bradycardia Otherwise normal ECG When compared with ECG of 02-JAN-2018 14:27, MANUAL COMPARISON REQUIRED, DATA IS UNCONFIRMED Confirmed by JUAN JOSE ESPITIA, KEL ([id number]), editor book MOE GILMORE ([id number]) on 01/05/2018 1:47:33 PM Referred By: SHERI Confirmed By:KEL INGRAM MD
[2018-01-03 06:02] LABS: Absolute Lymphocyte Count 2.74 X10^3/ul (0.83-4.51); Absolute Neutrophil Count 2.4 X10^3/uL (2.0-7.7); Basophil# 0.03 X10^3/uL; Basophil% 0.5 % (0-1); Eosinophil# 0.13 X10^3/uL; Eosinophils% 2.3 % (0-5); Hematocrit 37.6 % (37-47); Hemoglobin 12.4 g/dl (12.0-15.0); Lymphocyte # 2.74 X10^3/ul (4.0); Lymphocyte % 47.7 % (19-41); Mean Corpuscular Hgb 32.5 pg (27.0-32.0); Mean Corpuscular Volume 98.4 fL (81-99); Mean Platelet Vol. 10.7 fl (6.2-12.0); Monocyte# 0.49 X10^3/uL; Monocyte% 8.5 % (0-10); Neutrophil # 2.35 X10^3/uL (2.7-7.7); Neutrophil % 40.8 % (47-70); Platelet Count 245 K/mm3 (150-450); RBC Distribution Width CV 13.5 % (11.6-14.6); RBC Distribution Width SD 47.2 fl (35.1-43.9); Red Blood Count 3.82 M/mm3 (4.2-5.4); White Blood Count 5.8 K/mm3 (4.4-11.0)
[2018-01-03 06:06] LABS: International Normalized Ratio 1.2; POSITIVE COUNT NO; POSITIVE DIFFERENTIAL NO; POSITIVE MORPHOLOGY NO; Prothrombin Time (Protime)PT. 15.1 SECONDS (11.7-14.9)
[2018-01-03 06:07] LABS: Partial Thromboplast Time 32.7 Seconds (24.1-36.2)
[2018-01-03 06:40] LABS: ALB/GLOB Ratio 0.9 RATIO (0.9-2.4); AST(SGOT) 29 U/L (15-37); Alanine Aminotransfer ALT/SGPT 39 U/L (13-56); Alkaline Phosphatase 63 U/L (45-117); Anion Gap 6 (5-15); BUN 3 mg/dL (7-18); BUN/Creat Ratio 3.7 RATIO (10-20); Calcium,Total 8.2 mg/dL (8.5-10.1); Chloride 112 mmol/L (98-107); Creatinine, Serum 0.82 mg/dL (0.55-1.02); EST Glomerular Filtration Rate 75 mL/min (>60); Est Glom Filt Rate - Afr Amer 91 mL/min (>60); Globulin 3.3 g/dL (2.2-4.2); Glucose 85 mg/dL (74-106); Potassium 4.1 mmol/L (3.5-5.1); Protein, Total 6.3 g/dL (6.4-8.2); Sodium Level 144 mmol/L (136-145)
--- NOTE | 2018-01-03 08:42 | STRESSREP ---
Stress Test Report Pharmacologic myocardial perfusion stress test. This 62-year-old lady with a history of abnormal cardiac enzymes. Stress protocol: Resting EKG demonstrated sinus bradycardia with a rate of 56 bpm normal intervals are noted resting blood pressure 118/76 mmHg. The patient exercised according to regular Alex protocol for total duration of 6 minutes and 26 seconds attaining a maximum heart rate of 114 bpm which was 72% of maximum predicted heart rate. The maximum workload attained was 7.6 metabolic equivalents. At rest there were no ST or T wave changes noted suggest ischemia at peak exercise no ST or T wave changes were noted suggest ischemia. The resting blood pressure was 118/70 6 m of mercury with a peak blood pressure of 142/80 mmHg. Due to inability to obtain 85% of maximum predicted heart rate the test was switched to a pharmacologic stress test. 0.4 mg of regadenoson was then infused per usual protocol. The maximum heart rate attained was 93 bpm which was 58% of maximum predicted heart rate. No EKG changes were noted suggest ischemia. Myocardial perfusion protocol. 11.4 mCi of technetium 99m sestamibi was injected at rest. 0.4 mg of regadenoson was infused per usual protocol peak infusion 33.7 mCi of technetium 99m sestamibi was injected stress images were obtained stress and rest images were reconstructed and compared in the short axis vertical long horizontal long axis. Gated images were also obtained per Perfusion SPECT analysis: Review of the stress images demonstrated normal uptake of tracer noted in all areas of the myocardium. The resting images demonstrate normal uptake of tracer noted in all areas of the myocardium. Normal no reversibility is noted suggest ischemia. No previous infarct is noted. Gated SPECT analysis: The gated ejection fraction is noted to be 61%. Conclusion: Normal pharmacologic myocardial perfusion stress test with no evidence of ischemia. Good exercise capacity attaining a maximum workload of 7.6 metabolic equivalents with no chest pain or evidence of angina. Good functional aerobic capacity. Preserved ejection fraction.
--- NOTE | 2018-01-03 11:40 | NURSING ---
report called to AC
--- NOTE | 2018-01-03 12:23 | PN_ITS ---
<Colton Carr - Last Filed: 01/03/18 12:19> Subjective: Recent NSTEMI Nov 2017 @ [place] with reported negative Coronary CT. Stress test today was neg. Pt agreeable to endoscopy. Results pending. - Physical Exam General: Alert, Oriented x3, Cooperative HEENT: Atraumatic, PERRLA, EOMI, Normocephalic Neck: Supple, No JVD, Negative Carotid Bruits Lungs: Clear to auscultation, Normal air movement Cardiovascular: Regular rate, No murmurs Abdomen: Bowel Sounds Present, Soft, Non Tender Extremities: No edema, Capillary Refill Less than 3 Seconds Skin: No rashes, No breakdown Musculoskeletal: No Tenderness to Palpation of Joints or Extremities Neurological: Cranial nerves II-XII grossly intact Psych/Mental Status: Normal Affect, Appropriate, Alert and oriented to time, place, person, mood and affect Vital Signs Temp Pulse Resp BP Pulse Ox 97.7 F L 57 L 16 108/69 97 01/03/18 09:51 01/03/18 09:51 01/03/18 09:51 01/03/18 09:51 01/03/18 09:51 Oxygen Delivery Method Room Air Weight: 145 lb 4.554 oz Body Mass Index (BMI) 20.8 Intake and Output for Last 24 Hours 01/01/18 01/02/18 01/03/18 23:59 23:59 23:59 Intake Total 734 / 734 3216 / 3216 Balance 734 / 734 3216 / 3216 Laboratory Tests Past 24 Hrs 01/02/18 01/02/18 01/02/18 12:00 12:00 12:00 WBC RBC Hgb Hct MCV MCH MCHC RDW RDW Differential Plt Count MPV Immature Gran % (Auto) Neut % (Auto) Lymph % (Auto) [place] % (Auto) Eos % (Auto) Baso % (Auto) Absolute Neuts (auto) Absolute Lymphs (auto) Total Counted PT 13.7 INR 1.1 APTT 33.2 Sodium 133 L Potassium 3.5 Chloride 98 Carbon Dioxide 26.0 Anion Gap 9 BUN 5 L Creatinine 0.84 Estim Creat Clear Calc 73.09 Est GFR (MDRD) Af Amer 88 Est GFR (MDRD) Non-Af 73 BUN/Creatinine Ratio 5.9 L Glucose 154 H Calcium 8.6 Total Bilirubin 1.50 H Direct Bilirubin AST 22 ALT 35 Alkaline Phosphatase 75 Troponin I < 0.015 Total Protein 7.4 Albumin 3.6 Globulin 3.8 Albumin/Globulin Ratio 0.9 Lipase 110 01/02/18 01/02/18 01/02/18 15:00 15:00 17:34 WBC RBC Hgb Hct MCV MCH MCHC RDW RDW Differential Plt Count MPV Immature Gran % (Auto) Neut % (Auto) Lymph % (Auto) [place] % (Auto) Eos % (Auto) Baso % (Auto) Absolute Neuts (auto) Absolute Lymphs (auto) Total Counted PT INR APTT Sodium Potassium Chloride Carbon Dioxide Anion Gap BUN Creatinine Estim Creat Clear Calc Est GFR (MDRD) Af Amer Est GFR (MDRD) Non-Af BUN/Creatinine Ratio Glucose Calcium Total Bilirubin Direct Bilirubin 0.40 H AST ALT Alkaline Phosphatase Troponin I < 0.015 < 0.015 Total Protein Albumin Globulin Albumin/Globulin Ratio Lipase 01/03/18 01/03/18 01/03/18 05:15 05:15 05:15 WBC 5.8 RBC 3.82 L Hgb 12.4 Hct 37.6 MCV 98.4 MCH 32.5 H MCHC 33.0 RDW 13.5 RDW Differential 47.2 H Plt Count 245 MPV 10.7 Immature Gran % (Auto) 0.200 Neut % (Auto) 40.8 L Lymph % (Auto) 47.7 H [place] % (Auto) 8.5 Eos % (Auto) 2.3 Baso % (Auto) 0.5 Absolute Neuts (auto) 2.4 Absolute Lymphs (auto) 2.74 Total Counted Not Reportable PT 15.1 H INR 1.2 APTT 32.7 Sodium 144 Potassium 4.1 Chloride 112 H Carbon Dioxide 26.0 Anion Gap 6 BUN 3 L Creatinine 0.82 Estim Creat Clear Calc 74.00 Est GFR (MDRD) Af Amer 91 Est GFR (MDRD) Non-Af 75 BUN/Creatinine Ratio 3.7 L Glucose 85 Calcium 8.2 L Total Bilirubin 1.40 H Direct Bilirubin AST 29 ALT 39 Alkaline Phosphatase 63 Troponin I Total Protein 6.3 L Albumin 3.0 L Globulin 3.3 Albumin/Globulin Ratio 0.9 Lipase Medical Necessity - Tobacco Use Smoking Status: Former smoker Assessment/Plan All Active Problems Acute chest pain (Acute) Abdominal pain (Acute) 1. Abdominal/chest pain with blood streaked stools - h/h stable. Going for colonoscopy. elevated t and direct bili. loose stools ? GB etiology. Stress test neg. 2. CAD - recent nstemi - stress neg. continue asa/statin/lopressor. not on sanna/arb. Trop neg. 3. Hypothyroidism - check tsh. 4. HLD - statin 5. HTN - stable DVT ppx: Lovenox DC planning: pending results of colonoscopy. This patient was seen by Colton Carr PA-C under the supervision of Dr. Rivas. <James Rivas - Last Filed: 01/04/18 09:50> - Physical Exam Vital Signs Temp Pulse Resp BP Pulse Ox 97.7 F L 55 L 16 108/69 97 01/03/18 09:51 01/03/18 10:21 01/03/18 09:51 01/03/18 09:51 01/03/18 09:51 Oxygen Delivery Method Room Air Weight: 65.9 kg Body Mass Index (BMI) 20.8 Intake and Output for Last 24 Hours 01/01/18 01/02/18 01/03/18 23:59 23:59 23:59 Intake Total 734 / 734 3216 / 3216 Balance 734 / 734 3216 / 3216 Laboratory Tests Past 24 Hrs 01/02/18 01/02/18 01/02/18 15:00 15:00 17:34 WBC RBC Hgb Hct MCV MCH MCHC RDW RDW Differential Plt Count MPV Immature Gran % (Auto) Neut % (Auto) Lymph % (Auto) [place] % (Auto) Eos % (Auto) Baso % (Auto) Absolute Neuts (auto) Absolute Lymphs (auto) Total Counted PT INR APTT Sodium Potassium Chloride Carbon Dioxide Anion Gap BUN Creatinine Estim Creat Clear Calc Est GFR (MDRD) Af Amer Est GFR (MDRD) Non-Af BUN/Creatinine Ratio Glucose Calcium Total Bilirubin Direct Bilirubin 0.40 H AST ALT Alkaline Phosphatase Troponin I < 0.015 < 0.015 Total Protein Albumin Globulin Albumin/Globulin Ratio TSH 01/03/18 01/03/18 01/03/18 05:15 05:15 05:15 WBC 5.8 RBC 3.82 L Hgb 12.4 Hct 37.6 MCV 98.4 MCH 32.5 H MCHC 33.0 RDW 13.5 RDW Differential 47.2 H Plt Count 245 MPV 10.7 Immature Gran % (Auto) 0.200 Neut % (Auto) 40.8 L Lymph % (Auto) 47.7 H [place] % (Auto) 8.5 Eos % (Auto) 2.3 Baso % (Auto) 0.5 Absolute Neuts (auto) 2.4 Absolute Lymphs (auto) 2.74 Total Counted Not Reportable PT 15.1 H INR 1.2 APTT 32.7 Sodium 144 Potassium 4.1 Chloride 112 H Carbon Dioxide 26.0 Anion Gap 6 BUN 3 L Creatinine 0.82 Estim Creat Clear Calc 74.00 Est GFR (MDRD) Af Amer 91 Est GFR (MDRD) Non-Af 75 BUN/Creatinine Ratio 3.7 L Glucose 85 Calcium 8.2 L Total Bilirubin 1.40 H Direct Bilirubin AST 29 ALT 39 Alkaline Phosphatase 63 Troponin I Total Protein 6.3 L Albumin 3.0 L Globulin 3.3 Albumin/Globulin Ratio 0.9 TSH 01/03/18 05:15 WBC RBC Hgb Hct MCV MCH MCHC RDW RDW Differential Plt Count MPV Immature Gran % (Auto) Neut % (Auto) Lymph % (Auto) [place] % (Auto) Eos % (Auto) Baso % (Auto) Absolute Neuts (auto) Absolute Lymphs (auto) Total Counted PT INR APTT Sodium Potassium Chloride Carbon Dioxide Anion Gap BUN Creatinine Estim Creat Clear Calc Est GFR (MDRD) Af Amer Est GFR (MDRD) Non-Af BUN/Creatinine Ratio Glucose Calcium Total Bilirubin Direct Bilirubin AST ALT Alkaline Phosphatase Troponin I Total Protein Albumin Globulin Albumin/Globulin Ratio TSH 4.41 H Assessment/Plan This patient was seen in conjunction with Colton Carr PA-C . I have independently interviewed and examined the patient and reviewed pertinent historical, laboratory, and other data. Please refer to Colton Carr PA-C note for details of this patient's presentation, findings, and recommendations. I have reviewed Colton Carr PA-C note and concur with documented findings. In brief, patient is a 62-year-old lady who was scheduled to undergo EGD as part of workup for dyspepsia admitted with chest pain Physical Examination: GENERAL: cooperative HEENT: Atraumatic; SKIN: No Rash PSYCH; Normal affect Assessment: 1. Chest pain; negative stress test 2. Dyspepsia 3. CAD with recent acute non-STEMI 4. Hypothyroidism 5. Dyslipidemia 6. Essential hypertension Recommendations: 1. I have discussed the results of my overview and impressions with the patient 2. Options for management were reviewed
[2018-01-03 12:59] LABS: Thyroid Stim Hormone (TSH) 4.41 uIU/mL (0.358-3.74)
--- NOTE | 2018-01-03 13:43 | OP.ENDO_ITS ---
Patient Name: Darline Rangel Procedure Date: 01/03/2018 12:49 PM Date of : 1955 Age: 62 Procedure: Upper GI endoscopy Indications: Epigastric abdominal pain, Dysphagia Providers: Jacob Moreno MD Medicines: Monitored Anesthesia Care Patient Profile: This is a 62 year old female. Refer to note in patient chart for documentation of history and physical. Complications: No immediate complications. Procedure: Pre-Anesthesia Assessment: - Prior to the procedure, a History and Physical was performed, and patient medications and allergies were reviewed. The patient is competent. The risks and benefits of the procedure and the sedation options and risks were discussed with the patient. All questions were answered and informed consent was obtained. Patient identification and proposed procedure were verified by the physician, the nurse and the aircraft seat upholsterer in the procedure room. Mental Status Examination: alert and oriented. Airway Examination: normal oropharyngeal airway and neck mobility. Respiratory Examination: clear to auscultation. CV Examination: normal. Prophylactic Antibiotics: The patient does not require prophylactic antibiotics. Prior Anticoagulants: The patient has taken aspirin, last dose was 1 day prior to procedure. ASA Grade Assessment: III - A patient with severe systemic disease. After reviewing the risks and benefits, the patient was deemed in satisfactory condition to undergo the procedure. The anesthesia plan was to use monitored anesthesia care (MAC). Immediately prior to administration of medications, the patient was re-assessed for adequacy to receive sedatives. The heart rate, respiratory rate, oxygen saturations, blood pressure, adequacy of pulmonary ventilation, and response to care were monitored throughout the procedure. The physical status of the patient was re-assessed after the procedure. After obtaining informed consent, the endoscope was passed under direct vision. Throughout the procedure, the patient's blood pressure, pulse, and oxygen saturations were monitored continuously. The gastroscope was introduced through the mouth, and advanced to the jejunum. The upper GI endoscopy was accomplished without difficulty. The patient tolerated the procedure well. Scope In: 1:05:17 PM Scope Out: 1:11:36 PM Total Procedure Duration Time 0 hours 6 minutes 19 seconds Findings: The examined jejunum was normal. Biopsies for histology were taken with a cold forceps for evaluation of celiac disease. The examined duodenum was normal. Scattered minimal inflammation characterized by erythema was found in the entire examined stomach. Biopsies were taken with a cold forceps for histology. The lower third of the esophagus was normal. Biopsies were taken with a cold forceps for histology. The middle third of the esophagus was normal. Biopsies were taken with a cold forceps for histology. Impression: - Normal examined jejunum. Biopsied. - Normal examined duodenum. - Gastritis. Biopsied. - Normal lower third of esophagus. Biopsied. - Normal middle third of esophagus. Biopsied. Recommendation: - [facility]. - Return to my office in 1 week. - Continue present medications. Procedure Code(s): --- Professional --- 15434, Esophagogastroduodenoscopy, flexible, transoral; with biopsy, single or multiple CPT copyright 2017 [employer]. All rights reserved. The codes documented in this report are preliminary and upon welding robot operator review may be revised to meet current compliance requirements. Jacob Moreno MD 01/03/2018 1:43:04 PM This report has been signed electronically. Number of Addenda: 0 Note Initiated On: 01/03/2018 12:49 PM
--- NOTE | 2018-01-03 13:48 | OP.ENDO_ITS ---
Patient Name: Darline Rangel Procedure Date: 01/03/2018 1:11 PM Date of : 1955 Age: 62 Procedure: Colonoscopy Indications: Abdominal pain, Change in bowel habits Providers: Jacob Moreno MD Medicines: Monitored Anesthesia Care Patient Profile: This is a 62 year old female. Refer to note in patient chart for documentation of history and physical. Last Colonoscopy: date unknown. Complications: No immediate complications. Procedure: Pre-Anesthesia Assessment: - Prior to the procedure, a History and Physical was performed, and patient medications and allergies were reviewed. The patient is competent. The risks and benefits of the procedure and the sedation options and risks were discussed with the patient. All questions were answered and informed consent was obtained. Patient identification and proposed procedure were verified by the physician, the nurse and the program paraprofessional in the procedure room. Mental Status Examination: alert and oriented. Airway Examination: normal oropharyngeal airway and neck mobility. Respiratory Examination: clear to auscultation. CV Examination: normal. Prophylactic Antibiotics: The patient does not require prophylactic antibiotics. Prior Anticoagulants: The patient has taken aspirin, last dose was 1 day prior to procedure. ASA Grade Assessment: III - A patient with severe systemic disease. After reviewing the risks and benefits, the patient was deemed in satisfactory condition to undergo the procedure. The anesthesia plan was to use monitored anesthesia care (MAC). Immediately prior to administration of medications, the patient was re-assessed for adequacy to receive sedatives. The heart rate, respiratory rate, oxygen saturations, blood pressure, adequacy of pulmonary ventilation, and response to care were monitored throughout the procedure. The physical status of the patient was re-assessed after the procedure. After I obtained informed consent, the scope was passed under direct vision. Throughout the procedure, the patient's blood pressure, pulse, and oxygen saturations were monitored continuously. The colonoscope was introduced through the anus and advanced to 4 cm into the ileum. The colonoscopy was performed without difficulty. The patient tolerated the procedure well. The quality of the bowel preparation was good. Scope In: 1:14:08 PM Scope Withdrawal Time 0 hours 15 minutes 25 seconds Scope Out: 1:36:34 PM Total Procedure Duration Time 0 hours 22 minutes 26 seconds Findings: The perianal and digital rectal examinations were normal. The terminal ileum appeared normal. Biopsies were taken with a cold forceps for histology. The colon (entire examined portion) appeared normal. Biopsies for histology were taken with a cold forceps from the cecum and rectum for evaluation of microscopic colitis. A 6 mm polyp was found in the recto-sigmoid colon. The polyp was sessile. The polyp was removed with a hot snare. Resection and retrieval were complete. A patchy area of mildly erythematous mucosa was found in the entire colon. Impression: - The examined portion of the ileum was normal. Biopsied. - The entire examined colon is normal. Biopsied. - One 6 mm polyp at the recto-sigmoid colon, removed with a hot snare. Resected and retrieved. - Erythematous mucosa in the entire examined colon. Recommendation: - Discharge patient to home. - Resume previous diet. - Continue present medications. - Return to my office. - Repeat colonoscopy is recommended. The colonoscopy date will be determined after pathology results from today's exam become available for review. Procedure Code(s): --- Professional --- 58122, Colonoscopy, flexible; with removal of tumor(s), polyp(s), or other lesion(s) by snare technique 59056, 59, Colonoscopy, flexible; with biopsy, single or multiple CPT copyright 2017 [employer]. All rights reserved. The codes documented in this report are preliminary and upon manager image review may be revised to meet current compliance requirements. Jacob Moreno MD 01/03/2018 1:48:14 PM This report has been signed electronically. Number of Addenda: 0 Note Initiated On: 01/03/2018 1:11 PM
[2018-01-03] MEDS: Acetaminophen 325 MG Tablet 650 MG PO (14:57)
--- NOTE | 2018-01-03 16:00 | DCINST_ITS ---
- Discharge Diagnoses Current Active Problems: Current Active and Chronic Problems Hypothyroidism (Chronic) Hyperlipidemia (Chronic) Hypertension (Chronic) Acute chest pain (Acute) Abdominal pain (Acute) You will use the following diet at home:: Cardiac Your food should be the consistency of: Regular Your liquids should be the consistency of: Regular/Thin Discharge Activity: Return to Normal Activity Allergies/Adverse Reactions: Allergies No Known Allergies Allergy (Verified 12/25/17 18:58) Medications to take at Discharge Ondansetron [Zofran Odt] 8 mg PO Q8H PRN PRN #10 tab 12/25/17 Aspirin 81 mg PO DAILY 01/02/18 Atorvastatin Calcium [Lipitor] 20 mg PO QHS 01/02/18 Levothyroxine Sodium [Synthroid] 88 mcg PO DAILY 01/02/18 Metoprolol Tartrate [Lopressor (beta ruth)] 50 mg PO BID 01/02/18 Acetaminophen [Tylenol Tablet] 650 mg PO Q6H PRN PRN tablet 01/03/18 Pantoprazole Sodium [Protonix] 40 mg PO DAILY #30 tablet 01/03/18 The following prescriptions were given: Pantoprazole Sodium [Protonix] 40 mg PO DAILY #30 tablet Primary Care Physician: Ron Jones MD [Primary Care Provider] - Please follow up with your Primary Care Physician in: 1-2 weeks Test Results: Test results from this visit will be discussed in further detail at your follow- up appointment, if applicable. Please Follow Up With: Jacob Moreno MD When: 1 week Proposed Discharge Date: 01/03/18
--- NOTE | 2018-01-03 16:04 | DS.PCM_ITS ---
<Colton Carr - Last Filed: 01/03/18 16:06> Discharge Date and Diagnosis Date of Admission: 01/02/18 Date of Discharge: 01/03/18 - Primary Discharge Diagnosis Active and Suspected Problems Chest pain - GERD Abdominal pain - GERD Gastritis Colonic polyp Cardiac etiology ruled out CAD - recent NSTEMI HTN HLD Hypothyroid - Secondary Discharge Diagnosis Chronic Problems Hypothyroidism (Chronic) Hyperlipidemia (Chronic) Hypertension (Chronic) Hospital Course and Treatment Imaging Results: RAD/Chest 1 View (Portable) IMPRESSION: Hyperinflation. The lungs are clear. Stress test: Conclusion: Normal pharmacologic myocardial perfusion stress test with no evidence of ischemia. Good exercise capacity attaining a maximum workload of 7.6 metabolic equivalents with no chest pain or evidence of angina. Good functional aerobic capacity. Preserved ejection fraction. Consults: Josh - Gen Surg. Operations: None Procedures: Colonoscopy, EGD, Stress test Summary of Care Provided: Hospital Course: The patient is a 62 year old F with PMhx of recent NSTEMI, who presented to the ER with abdominal and chest pain, with blood streaked stools. She had negative EKG, and negative troponin. CXR was negative. She was admitted to the PCU on tele. Gen surgery was consulted. She underwent a stress test which was negative. She was then taken for EGD and colonoscopy. EGD showed gastritis, colon showed some erythema and a polyp was removed. Biopsies were sent. She was placed on a PPI. Gen surgery was concerned she may have had esophageal spasms and suggested cardizem, however at the current time her pulse and blood pressure is low normal so we will defer at this time. We did start her on protonix. She will continue this and be discharged home, she is in stable condition She will follow up with Dr. Moreno in one week. She will need to see her PCP in 1-2 weeks. This patient was seen by Colton Carr PA-C under the supervision of Dr. Rivas. [] - Physical Exam General: Alert, Oriented x3, Cooperative HEENT: Atraumatic, PERRLA, EOMI, Normocephalic Neck: Supple, No JVD, Negative Carotid Bruits Lungs: Clear to auscultation, Normal air movement Cardiovascular: Regular rate, No murmurs Abdomen: Bowel Sounds Present, Soft, Non Tender Extremities: No edema, Capillary Refill Less than 3 Seconds Skin: No rashes, No breakdown Musculoskeletal: No Tenderness to Palpation of Joints or Extremities Neurological: Cranial nerves II-XII grossly intact Psych/Mental Status: Normal Affect, Appropriate, Alert and oriented to time, place, person, mood and affect Vital Signs Temp Pulse Resp BP Pulse Ox 98.2 F 56 L 18 120/76 94 01/03/18 14:50 01/03/18 14:50 01/03/18 14:50 01/03/18 14:50 01/03/18 14:50 Oxygen Delivery Method Room Air Weight: 145 lb 4.554 oz Body Mass Index (BMI) 20.8 Intake and Output for Last 24 Hours 01/01/18 01/02/18 01/03/18 23:59 23:59 23:59 Intake Total 734 / 734 4016 / 4016 Balance 734 / 734 4016 / 4016 Laboratory Tests Past 24 Hrs 01/02/18 01/03/18 01/03/18 17:34 05:15 05:15 WBC 5.8 RBC 3.82 L Hgb 12.4 Hct 37.6 MCV 98.4 MCH 32.5 H MCHC 33.0 RDW 13.5 RDW Differential 47.2 H Plt Count 245 MPV 10.7 Immature Gran % (Auto) 0.200 Neut % (Auto) 40.8 L Lymph % (Auto) 47.7 H [place] % (Auto) 8.5 Eos % (Auto) 2.3 Baso % (Auto) 0.5 Absolute Neuts (auto) 2.4 Absolute Lymphs (auto) 2.74 Total Counted Not Reportable PT INR APTT Sodium 144 Potassium 4.1 Chloride 112 H Carbon Dioxide 26.0 Anion Gap 6 BUN 3 L Creatinine 0.82 Estim Creat Clear Calc 74.00 Est GFR (MDRD) Af Amer 91 Est GFR (MDRD) Non-Af 75 BUN/Creatinine Ratio 3.7 L Glucose 85 Calcium 8.2 L Total Bilirubin 1.40 H AST 29 ALT 39 Alkaline Phosphatase 63 Troponin I < 0.015 Total Protein 6.3 L Albumin 3.0 L Globulin 3.3 Albumin/Globulin Ratio 0.9 TSH 01/03/18 01/03/18 05:15 05:15 WBC RBC Hgb Hct MCV MCH MCHC RDW RDW Differential Plt Count MPV Immature Gran % (Auto) Neut % (Auto) Lymph % (Auto) [place] % (Auto) Eos % (Auto) Baso % (Auto) Absolute Neuts (auto) Absolute Lymphs (auto) Total Counted PT 15.1 H INR 1.2 APTT 32.7 Sodium Potassium Chloride Carbon Dioxide Anion Gap BUN Creatinine Estim Creat Clear Calc Est GFR (MDRD) Af Amer Est GFR (MDRD) Non-Af BUN/Creatinine Ratio Glucose Calcium Total Bilirubin AST ALT Alkaline Phosphatase Troponin I Total Protein Albumin Globulin Albumin/Globulin Ratio TSH 4.41 H Discharge Diet: Low fat/ Low Cholesterol, 2000 mg Sodium Diet Discharge Activity: Return to Normal Activity Home Medications: Medications to take at Discharge Ondansetron [Zofran Odt] 8 mg PO Q8H PRN PRN #10 tab 12/25/17 Aspirin 81 mg PO DAILY 01/02/18 Atorvastatin Calcium [Lipitor] 20 mg PO QHS 01/02/18 Levothyroxine Sodium [Synthroid] 88 mcg PO DAILY 01/02/18 Metoprolol Tartrate [Lopressor (beta ruth)] 50 mg PO BID 01/02/18 Acetaminophen [Tylenol Tablet] 650 mg PO Q6H PRN PRN tablet 01/03/18 Pantoprazole Sodium [Protonix] 40 mg PO DAILY #30 tablet 01/03/18 Following Prescrptions Were Given to Patient: Pantoprazole Sodium [Protonix] 40 mg PO DAILY #30 tablet Primary Care Physician: Ron Jones MD [Primary Care Provider] - Please follow up with your Primary Care Physician in: 1-2 weeks Please Follow Up With: Jacob Moreno MD When: 1 week Disposition: Home Minutes spent on discharge:: 35 Patient Condition:: Stable Medical Necessity - Tobacco Use Smoking Status: Former smoker Meaningful Use Info Meaningful Use Diagnoses (Choose all that apply): None applicable <James Rivas - Last Filed: 01/04/18 09:53> Discharge Date and Diagnosis - Secondary Discharge Diagnosis Chronic Problems Hypothyroidism (Chronic) Hyperlipidemia (Chronic) Hypertension (Chronic) Hospital Course and Treatment Summary of Care Provided: This patient was seen in conjunction with Colton Carr PA-C . I have independently interviewed and examined the patient and reviewed pertinent historical, laboratory, and other data. Please refer to Colton Carr PA-C note for details of this patient's presentation, findings, and recommendations. I have reviewed Colton Carr PA-C note and concur with documented findings. In brief, patient is a 62-year-old lady who was scheduled to undergo EGD as part of workup for dyspepsia admitted with chest pain Physical Examination: GENERAL: cooperative HEENT: Atraumatic; SKIN: No Rash PSYCH; Normal affect Assessment: 1. Chest pain; negative stress test 2. Dyspepsia 3. CAD with recent acute non-STEMI 4. Hypothyroidism 5. Dyslipidemia 6. Essential hypertension Hospital course: As elicited above - Physical Exam Vital Signs Temp Pulse Resp BP Pulse Ox 98.2 F 73 18 120/76 94 01/03/18 14:50 01/03/18 15:37 01/03/18 14:50 01/03/18 14:50 01/03/18 14:50 Oxygen Delivery Method Room Air Weight: 65.9 kg Body Mass Index (BMI) 20.8 Intake and Output for Last 24 Hours 01/02/18 01/03/18 01/04/18 23:59 23:59 23:59 Intake Total 734 / 734 4016 / 4016 Balance 734 / 734 4016 / 4016 Laboratory Tests Past 24 Hrs 01/03/18 01/03/18 05:15 14:59 TSH 4.41 H Free T4 1.17 Code Visit OBSV E&M: 13315 Observation care discharge
[2018-01-03 17:35] LABS: T4 Free Direct 1.17 ng/dL (0.76-1.46)
== END 2018-01-03 16:00 | disposition home or self-care (01) ==
LOC: ED 13:14 → PCU 13:25
PROVIDERS: Physician Assistant; Surgery; Admitting Provider Hospitalist; Emergency Provider Emergency Medicine; Family Provider Family Medicine; PCP Family Medicine; Visit Provider Internal Medicine
PROC: 0DJD8ZZ Inspection of Lower Intestinal Tract, Via Natural or Artificial Opening Endoscopic (ICD-10-PCS; CPT 45378; principal; 2018-01-03 12:10)
DX: R07.89 Other chest pain (principal); I25.10 Atherosclerotic heart disease of native coronary artery without angina pectoris; R10.13 Epigastric pain; I10 Essential (primary) hypertension; E78.5 Hyperlipidemia, unspecified; E03.9 Hypothyroidism, unspecified; J45.909 Unspecified asthma, uncomplicated; R13.10 Dysphagia, unspecified; D12.8 Benign neoplasm of rectum; I25.2 Old myocardial infarction; Z79.82 Long term (current) use of aspirin; Z79.899 Other long term (current) drug therapy; Z87.891 Personal history of nicotine dependence; K21.9 Gastro-esophageal reflux disease without esophagitis; K29.70 Gastritis, unspecified, without bleeding
CPT/HCPCS: 43239; 45380; 45385; 36415; 71045; 78452; 80053; 82248; 83690; 84439; 84443; 84484; 85025; 85610; 85730; 88305; 88342; 93005; 93017; 96361; 96365; 96366; 96375; 97162; 97166; 97802; 99218; 99283; A9500; J7030; A4216; G0378; J2405; J2785